=== PATIENT | female | born 1955 | race Caucasian/White ===

== ENCOUNTER 2023-08-11 12:36 | Emergency (ER) | payer OTHER ==
[~2023-08-11] VITALS: Ht 162.6 cm; Wt 64.0 kg
[2023-08-11 12:45] VITALS: BP 103/57; PULSE 75; RESP 18; O2SAT 100
== END 2023-08-11 13:14 | disposition left against medical advice (07) ==
LOC: ER 12:36 → EDBD 12:36 → ER 13:14
DX: R53.1 Weakness (principal); I10 Essential (primary) hypertension; I48.91 Unspecified atrial fibrillation; E78.5 Hyperlipidemia, unspecified; E03.9 Hypothyroidism, unspecified